=== PATIENT | male | born 1950 | race Caucasian/White ===

== ENCOUNTER → 2018-04-27 | Outpatient (CLI) | payer MEDICARE, OTHER ==
[~2018-04-27] MED LIST: DOCU100 PO; HYDACE5 PO; OMEP20ER PO; OXYACE5T PO; RXOXYACE PO
== END ==
LOC: LAB SHORT 07:21 → PLD 07:21
DX: L30.9 Dermatitis, unspecified (principal)
CPT/HCPCS: 88312